=== PATIENT | male | born 1950 | race Caucasian/White ===

== ENCOUNTER 2017-01-31 19:58 | Emergency (ER) | payer OTHER ==
[~2017-01-31] VITALS: Ht 170.2 cm; Wt 74.1 kg
[2017-01-31 20:16] LABS: POINT-OF-CARE METER ID UU13113778; POINT-OF-CARE USER ID 611181311
[2017-01-31 20:27] LABS: HEMATOCRIT 44.1 % (38.0-50.0); MCH 29.4 PG (29.0-34.0); MCHC 35.1 G/DL (30.0-36.0); MCV 83.7 FL (86-99); MEAN PLAT.VOLUME 9.5 uM^3 (9.0-12.4); PLATELET COUNT 216 K/uL (156-360); RBC DIS.WIDTH-CV 11.5 % (11.8-14.6); RBC DIS.WIDTH-SD 34.7 % (39-53); RED BLOOD COUNT 5.27 M/uL (4.00-5.50); WHITE BLOOD COUNT 6.7 K/uL (4.1-10.2)
[2017-01-31 20:38] LABS: ADD MIUA? NO; BILIRUBIN NEGATIVE; BLOOD NEGATIVE; COLOR STRAW ((YELLOW)); GLUCOSE (STRIP) >=500; KETONES NEGATIVE; LEUKOCYTES NEGATIVE; NITRITE NEGATIVE; PROTEIN (STRIP) NEGATIVE; SPECIFIC GRAVITY 1.028 (1.000-1.030); UCUL ADDED? NO
[2017-01-31 20:38] LABS: CHLORIDE 102 mEq/L (99-109); POTASSIUM 4.2 mEq/L (3.7-5.4); SODIUM 135 mEq/L (136-147)
[2017-01-31 20:40] LABS: GLUCOSE 371 mg/dL (70-99)
[2017-01-31 20:41] LABS: ANION GAP 9 MEQ/L (2-14)
[2017-01-31 20:42] LABS: TOTAL BILIRUBIN 0.7 mg/dL (0.0-1.0)
[2017-01-31 20:44] LABS: ALKALINE PHOSPHATASE 77 IU/L (3-129); GFR ESTIMATE (CALCULATED) > 59 mL/min/
[2017-01-31 20:45] LABS: UREA NITROGEN (BUN) 24 mg/dL (9-23)
[2017-01-31] MEDS ORDERED: GLYBURIDE5 MG PO (21:17)
[2017-01-31] MEDS ORDERED: GLUCOPHAGE500 MG PO (21:17)
[2017-01-31 21:24] VITALS: BP 122/76
[2017-01-31 22:09] LABS: Estimated Average Glucose 301 mg/dL (70-123); HEMOGLOBIN A1c (GLYCOHEMOGLOB) 12.1 % HGB (Below 5.7)
== END 2017-01-31 21:25 | disposition home or self-care (01) ==
LOC: EME 19:58
DX: E11.65 Type 2 diabetes mellitus with hyperglycemia (principal); Z91.19 Patient's noncompliance with other medical treatment and regimen; Z79.84 Long term (current) use of oral hypoglycemic drugs
CPT/HCPCS: 80053; 81003; 82948; 83036; 85027; 99281; 99282